=== PATIENT | female | born 1970 | race Caucasian/White ===

== ENCOUNTER 2017-11-01 08:05 | Emergency (ER) | payer OTHER ==
[~2017-11-01 08:05] MED LIST: ACET-1935 PO; ASPI-692 PO; BISA-229 PO; BUTA1CAP4 PO; CALCIUM; CARB-86 PO; CEP500 PO; CYCL10TA29 PO; DICL-195 PO; DICY20TA70 PO; DIPH-740 PO; DIPH-741 PO; EST1T TD; FIO PO; FISH OIL; GLUCOSAMINE; IBU600 PO; IBU800 PO; IBUP200C72 PO; KET10 PO; L-NO1TBD6 PO; LOR5 PO; LOR5/325 PO; MAGNESIUM; MECL-81 PO; MILN12.52 PO; MULTIVITAMIN; NAPR220T86 PO; NAPROSYN; NIACIN; ONDA4TAB PO; ORP100 PO; PER PO; SERT-1 PO; SERT-173; SILV20CR2 TP; SILV20CR20 TP; TOP25 PO; VITAMIN B6; [UNRECOGNIZED DRUG - CODE] PO; potassium otc
[2017-11-01 08:10] VITALS: BP 124/92
[2017-11-01] MEDS ORDERED: DIPHTH/TETANUS/ACEL. PERTUSSIS IM ONLY ONE (08:15)
--- NOTE | 2017-11-01 08:18 | ER Report ---
History and Physical Time Seen By MD: 08:15 Hx. 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 Cardiovascular: No chest pain, no palpitations. Gastrointestinal: No vomiting, no abdominal pain. Musculoskeletal: No back pain. Remainder of the 14 system rev: Yes Allergies: Coded Allergies: carrot (Verified Allergy, Mild, HANDS SWELL, 06/27/17) Home Meds No Active Prescriptions or Reported Meds Reviewed Nurses Notes: Yes Old Medical Records Reviewed: Yes Hx Smoking: No Smoking Status: Never Smoker Exposure to Second Hand Smoke?: No Hx Substance Use Disorder: No Hx Alcohol Use: No Constitutional Vital Sign - Last 24 Hours 11/01/17 08:10 Temp 97.8 Pulse 93 Resp 16 B/P (MAP) 124/92 Pulse Ox 96 O2 Delivery Room Air Physical Exam General appearance: Alert no distress. Respiratory: Chest is non tender, lungs are clear to auscultation. Cardiac: Regular rate and rhythm [ ] Right hand dorsal aspect 5th finger PIP joint shows a very small 0.3-0.5 cm angled laceration actively bleeding neurovascularly intact otherwise unremarkable DIFFERENTIAL DIAGNOSIS: After history and physical exam differential diagnosis was considered for laceration Medical Decision Making ED Course/Re-evaluation ED Course ED clinical course medical evaluation 46-year-old female who cut her 5th finger dominant right hand dorsal aspect PIP joint a single interrupted suture was placed Procedural note simple interrupted suture placed of 4-0 nylon sterile aseptic technique throughout patient had his wound cleaned and copiously irrigated Carroll stitch was placed with good cosmesis sterile dressing will be applied Patient be discharged for evaluation for suture removal in between 8-9 days will follow up with primary care and/or clinic for evaluation advised to keep the wound dry for the next 72 hours and follow-up with primary care as needed Decision to Disposition Date: Nov 01, 2017 Decision to Disposition Time: 08:27 Depart Departure Latest Vital Signs Vital Signs Date Time Temp Pulse Resp B/P (MAP) Pulse Ox O2 Delivery O2 Flow Rate FiO2 11/01/17 08:10 97.8 93 16 124/92 96 Room Air Impression: Primary Impression: Laceration Condition: Improved Disposition: HOME OR SELF-CARE Referrals: MEJIA IBRAHIM DO (PCP) 1 Week New Scripts No Active Prescriptions or Reported Meds Patient Instructions: Acute Wound Care (DC) BRENDA JONES MD Nov 01, 2017 08:18
== END 2017-11-01 08:37 | disposition home or self-care (01) ==
LOC: ER 08:17
DX: S61.216A Laceration without foreign body of right little finger without damage to nail, initial encounter (principal); W26.9XXA Contact with unspecified sharp object(s), initial encounter; Y93.G1 Activity, food preparation and clean up; Y99.0 Civilian activity done for income or pay
CPT/HCPCS: 90471; 90715; 99282

== ENCOUNTER → 2017-12-05 | Outpatient (CLI) | payer OTHER ==
--- NOTE | 2017-12-05 10:26 | EKG ---
[place] [facility] [place] NAME: GONZALO ROSA : [id number] MR: [id number] V: [id number] EXAM DATE: ORDERING PHYSICIAN: MEJIA IBRAHIM TECHNOLOGIST: KIKE Garcia Reason : TACHYCARDIA Blood Pressure : / mmHG Vent. Rate : 085 BPM Atrial Rate : 085 BPM P-R Int : 130 ms QRS Dur : 084 ms QT Int : 350 ms P-R-T Axes : 016 020 008 degrees QTc Int : 416 ms Normal sinus rhythm ST abnormality, possible digitalis effect Abnormal ECG When compared with ECG of 07-JUL-2015 14:42, Previous ECG has undetermined rhythm, needs review Confirmed by CLOTILDE RICHARD ([id number]) on 12/05/2017 12:07:55 PM Referred By: ALEXANDRIA Confirmed By:CLOTILDE RICHARD
--- NOTE | 2017-12-05 11:14 | RADIOLOGY IMAGING REPORT ---
[place] [facility] [place] Chloe Manrique : 1970 MR: [id number] V: [id number] EXAM DATE: ORDERING PHYSICIAN: MEJIA IBRAHIM TECHNOLOGIST: Location: [facility] - [place] Patient: Chloe Manrique : 1970 Visit/Account:[id number] Date of Sevice: 12/05/2017 Exam type: CHEST PA AND LAT History: Cough since this morning, chest pain when coughing Comparison: July 07, 2015. Findings: There is a small amount of linear stranding in the left lung base consistent with scarring versus ate lectasis. There is no evidence of focal infiltrates, pleural effusions or pulmonary edema. No evide nce of a pneumothorax or pneumomediastinum. The cardiac silhouette is normal in size. IMPRESSION: 1. Small amount linear stranding in the left lung base consistent with scarring versus atelectasis Report Dictated By: Kimberly Ruiz MD at 12/05/2017 11:08 AM Report E-Signed By: Kimberly Ruiz MD at 12/05/2017 11:09 AM WSN:[email or web address]
== END ==
LOC: RAD 10:06
PROVIDERS: ATTEND Family Medicine
DX: R91.8 Other nonspecific abnormal finding of lung field (principal); R94.31 Abnormal electrocardiogram [ECG] [EKG]
CPT/HCPCS: 36415; 71046; 82310; 82374; 82435; 82565; 82947; 84132; 84295; 84443; 84520; 93005

== ENCOUNTER → 2017-12-07 | Outpatient (CLI) | payer OTHER ==
--- NOTE | 2017-12-07 13:10 | RADIOLOGY IMAGING REPORT ---
[facility] PATIENT NAME: Chloe Manrique : 1970 MR: [id number] V: [id number] EXAM DATE: ORDERING PHYSICIAN: MEJIA IBRAHIM TECHNOLOGIST: Location: [facility] Patient: Chloe Manrique : 1970 Visit/Account:[id number] Date of Sevice: 12/07/2017 Exam type: CHEST PA AND LAT History: Cough Comparison: December 05, 2017. Findings: Linear stranding left lung base is again noted consistent with scarring versus atelectasis. There is no evidence of focal infiltrates pleural effusions or pulmonary edema. The cardiac silhouette is no rmal in size. IMPRESSION: 1. Small amount linear stranding left lung base persist consistent with scarring versus atelectasis. Report Dictated By: Kimberly Ruiz MD at 12/07/2017 1:05 PM Report E-Signed By: Kimberly Ruiz MD at 12/07/2017 1:07 PM WSN:[email or web address]
== END ==
LOC: RAD 12:00
PROVIDERS: ATTEND Family Medicine
DX: R91.8 Other nonspecific abnormal finding of lung field (principal)
CPT/HCPCS: 71046

== ENCOUNTER → 2017-12-11 | Outpatient (CLI) | payer OTHER ==
--- NOTE | 2017-12-13 13:23 | RT HOLTER TEST ---
[place] [facility] [place]: GONZALO ROSA : [id number] MR: [id number] V: [id number] EXAM DATE: ORDERING PHYSICIAN: MEJIA IBRAHIM TECHNOLOGIST: NADIR Hook-up date: 2017-12-11 12:21:00 Duration: 44:06:00 Test Indications: chest pain / tachy Medications: diary not returned [id number] QRS complexes 1 Ventricular ectopics which represent <1 % of total QRS comp. 11 Supraventricular ectopics which represent <1 % of total QRS comp. * Paced QRS complexes which represent % of total QRS comp. VENTRICULAR ECTOPY 1 Isolated 0 Bigeminal Cycles 0 Couplets 0 Runs 0 Beats in Runs * Beats LONGEST at * BPM at :: -- * Beats FASTEST at * BPM at :: -- SUPRAVENTRICULAR ECTOPY 9 Isolated 1 Couplets 0 Runs 0 Beats in Runs * Beats LONGEST at * BPM at :: -- * Beats FASTEST at * BPM at :: -- HEART RATES 56 MIN at 03:12:50 2017-12-12 81 AVG 137 MAX at 19:37:52 2017-12-12 LONGEST RR 1.112 secs at 03:12:32 2017-12-12 S-T LEVELS Channel 1 -2.600 mm MIN at 18:36:45 2017-12-12 0.800 mm MAX at 13:49:30 2017-12-11 Channel 2 -2.600 mm MIN at 14:26:45 2017-12-12 0.400 mm MAX at 15:24:15 2017-12-11 Channel 3 -2.400 mm MIN at 07:36:45 2017-12-13 1.000 mm MAX at 16:00:15 2017-12-11 There were no reported symptoms during the test. The patient was predominantly in a sinus rhythm wit h rare supraventricular ectopic beats and ventricular ectopic beats. Confirmed by LONA MORALES ([id number]) on 12/13/2017 1:22:22 PM Referred By: Overread By: LONA MORALES
== END ==
LOC: RESP 11:58
PROVIDERS: ATTEND Family Medicine
DX: R07.9 Chest pain, unspecified (principal); R06.02 Shortness of breath; R94.31 Abnormal electrocardiogram [ECG] [EKG]; R00.0 Tachycardia, unspecified
CPT/HCPCS: 93225; 93226

== ENCOUNTER → 2017-12-26 | Outpatient (CLI) | payer OTHER ==
[~2017-12-26] MED LIST changes: +SUMA50TA34 PO
--- NOTE | 2017-12-26 11:46 | RT STRESS TEST REPORT ---
FACILITY: [facility] - [place], [place] PATIENT NAME: GONZALO ROSA : [id number] MR: [id number] V: [id number] EXAM DATE: ORDERING PHYSICIAN: RISA JOHNSTON TECHNOLOGIST: Abhilash Acquisition Time: 2017-12-26 08:28:13 Total Exercise Time: 00:05:01 Test Indications: Syncope Medications: vitamins benzonatate ranitidine supplements Protocol: JUSTIN 2 Max HR: 153 BPM 89% of Pred: 171 BPM Max BP: 114/079 mmHG Max Work Load: 7.0 METS Baseling ECG with ST depression in inferior leads, no change suggesting ischemia at stress. No signif icant arrhythmias noted. Confirmed by SIMONE CLEVELAND ([id number]) on 12/26/2017 11:44:36 AM Referred By: Risa Johnston Overread By: SIMONE CLEVELAND
--- NOTE | 2017-12-26 15:31 | RADIOLOGY IMAGING REPORT ---
FACILITY: [facility] - [place] PATIENT NAME: GONZALO ROSA : [id number] MR: [id number] V: [id number] EXAM DATE: [id number] ORDERING PHYSICIAN: MEJIA IBRAHIM TECHNOLOGIST: Marzena Avilez PROCEDURE: STRESS ECHOCARDIOGRAPHY COMPARISON: None. INDICATIONS: CHEST PAIN/SOB/ABNORMAL ECG BASELINE ECG: Shows normal sinus rhythm with ST depression in the inferior leads. STRESS ECG: Inferior ST depressions normalize with stress, show no signs of ischemia throughout. No evidence of significant arrhythmia. EXERCISE PORTION: Patient exercised for 5 min on Carson protocol reaching a maximum of 7 mets. Her resting heartrate was 94 BPM & reached a maximum heartrate of 153 BPM which represented 89% of her age predicted max heartrate. Resting blood pressure was 99/78 & peaked at 114/79. ECHOCARDIOGRAM INTERPRETATION: Baseline ejection fraction was calculated at 55% with no regional wall motion abnormalities. There was moderate LVH without LVOT obstruction present. No significant valvular dysfunction other than trace MR & TR. STRESS ECHO: Normal augmentation of LV wall function with an ejection fraction estimated at 71% with stress, no evidence of wall motion abnormalities or ischemia noted. CONCLUSION: 1. Abnormal baseline ECG with inferior ST segment depression that does not worsen with stress. 2. Moderate LVH with normal ejection fraction on baseline echocardiogram with no significant valvular dysfunction. 3. Normal stress echocardiogram with normal augmentation with normal augmentation of LV function & no evidence of focal wall motion abnormalities with stress. 4. Fair exercise capacity. 5. Based on results of the above stress test patient remains low risk (<1%) for annual cardiovascular events. Dictated by: Denton Guardado M.D. on 12/26/2017 at 11:55 Transcribed by: JUSTICE on 12/26/2017 at 15:24 Approved by: Denton Guardado M.D. on 12/26/2017 at 15:30 [facility]
== END ==
LOC: RAD 02:13
PROVIDERS: ATTEND Family Medicine
DX: R07.9 Chest pain, unspecified (principal); R06.02 Shortness of breath; R94.31 Abnormal electrocardiogram [ECG] [EKG]
CPT/HCPCS: 93017; 93325; 93350

== ENCOUNTER 2018-01-03 01:29 | Outpatient (RCR) | payer OTHER ==
[~2018-01-03 01:29] MED LIST changes: -SUMA50TA34 PO
--- NOTE | 2018-01-04 08:31 | RADIOLOGY IMAGING REPORT ---
FACILITY: [facility] - [place], [place] PATIENT NAME: GONZALO ROSA : [id number] MR: [id number] V: [id number] EXAM DATE: ORDERING PHYSICIAN: MEJIA IBRAHIM TECHNOLOGIST: Shirin Miller PROCEDURE:BILATERAL DIGITAL SCREENING MAMMOGRAM WITH CAD ASSISTED INTERPRETATION & 3D TOMOSYNTHESIS COMPARISON:Prior mammograms 03/03/14. INDICATIONS:SCREENING FINDINGS: A small amount of fibroglandular tissue is seen throughout the breasts. The parenchymal pattern has remained stable allowing for difference in mammographic technique & patient positioning. There is no evidence of malignant appearing mass, malignant appearing calcifications or other secondary sign of malignancy in either breast. DIAGNOSTIC CATEGORY 1--NEGATIVE. RECOMMENDATIONS: ROUTINE MAMMOGRAM AND CLINICAL EVALUATION. IMPRESSION: BIRADS 1: Negative. No significant abnormality is seen. Dictated by: Kimberly Ruiz M.D. on 01/03/2018 at 15:48 Transcribed by: CHRISTI on 01/03/2018 at 15:56 Approved by: Kimberly Ruiz M.D. on 01/04/2018 at 8:30 [facility]
[2018-01-05] MEDS ORDERED: SUMA50TA34 PO (11:17)
== END 2018-01-05 18:00 | disposition home or self-care (01) ==
LOC: MAMO 01:29
PROVIDERS: ATTEND Family Medicine
DX: Z12.31 Encounter for screening mammogram for malignant neoplasm of breast (principal); R06.02 Shortness of breath; J98.4 Other disorders of lung
CPT/HCPCS: 77063; 77067; 94060; 94726; 94729

== ENCOUNTER 2018-01-05 08:26 | Emergency (ER) | payer OTHER ==
--- NOTE | 2018-01-05 08:38 | ER Report ---
History and Physical Time Seen By MD: 08:37 Hx. of Stated Complaint: headache started yesterday. worst ever. has tried benadryl, naproxin, tylenol HPI/ROS This is a 47-year-old female with a history of migraine headaches who presents to the emergency department with a migraine headache that is not controlled with [id number]-[id number] medications. It is not the worst headache of her life. Not sudden in onset. It is a right frontal headache, and no meningismus or fever chills. The headache started yesterday, and she was able to control it somewhat with Tylenol. Today she was at work and the headache continued, so her coworkers suggested that she come to the emergency department. There is no vision changes, and no focal neurologic deficits or complaints. No recent trauma. Remainder of the 14 system rev: Yes Allergies: Coded Allergies: carrot (Verified Allergy, Mild, HANDS SWELL, 01/05/18) Home Meds No Active Prescriptions or Reported Meds Reviewed Nurses Notes: Yes Old Medical Records Reviewed: Yes Hx Smoking: No Smoking Status: Never Smoker Exposure to Second Hand Smoke?: No Hx Substance Use Disorder: No Hx Alcohol Use: No Constitutional Vital Sign - Last 24 Hours 01/05/18 01/05/18 01/05/18 01/05/18 08:31 08:34 08:41 08:56 Temp 98.4 Pulse 75 86 76 Resp 16 B/P (MAP) 117/86 117/86 (96) Pulse Ox 94 93 94 O2 Delivery Room Air 01/05/18 01/05/18 01/05/18 01/05/18 09:00 09:11 09:26 09:30 Pulse 81 70 B/P (MAP) 99/91 (94) 111/50 (70) Pulse Ox 95 94 Intake and Output 01/05/18 01/05/18 01/06/18 14:59 22:59 06:59 Intake Total 1000 ml Balance 1000 ml Physical Exam General Appearance: The patient is alert, has no immediate need for airway protection and no signs of toxicity. Eyes: Pupils equal and round no pallor or injection, no nystagmus ENT, Mouth: Mucous membranes are moist. Respiratory: There are no retractions, lungs are clear to auscultation. Cardiovascular: Regular rate and rhythm. Gastrointestinal: Abdomen is soft and non tender, no masses, bowel sounds normal. Neurological: strength/sensation grossly in tact, normal gait Skin: Warm and dry, no rashes. Neck is supple non tender. No meningimus Extremities are nontender, nonswollen and have full range of motion. DIFFERENTIAL DIAGNOSIS: After history and physical exam differential diagnosis was considered for headache including but not limited to subarachnoid hemorrhage , migraine headache, tension headache and infectious causes such as meningitis, pharyngitis and sinusitis. Medical Decision Making ED Course/Re-evaluation ED Course Headache improved with IV fluids, Toradol, Reglan, and Decadron. The patient has a normal exam, no fever, and no meningismus. Is not the worst headache of her life. Do not think she needs imaging or a lumbar puncture. I do not think this is infectious or intracranial hemorrhage. I think this headache is consistent with her typical migraines. I counseled her to return to the emergency department if her symptoms worsen or if she develops a fever. In the meantime I counseled her to rest the remainder of the day and drink plenty of fluids. Decision to Disposition Date: Jan 05, 2018 Decision to Disposition Time: 11:14 Depart Departure Latest Vital Signs Vital Signs Date Time Temp Pulse Resp B/P (MAP) Pulse Ox O2 Delivery O2 Flow Rate FiO2 01/05/18 09:30 111/50 (70) 01/05/18 09:26 70 94 01/05/18 08:31 98.4 16 Room Air Impression: Primary Impression: Migraine headache Condition: Improved Disposition: HOME OR SELF-CARE Referrals: MEJIA IBRAHIM DO (PCP) New Scripts Sumatriptan Succinate (IMITREX) 50 Mg Tablet 50 MG PO ONCE, #10 Prov: GAYLA CHEEK MD 01/05/18 Patient Instructions: Migraine Headache (ED) Problem Qualifiers Primary Impression: Migraine headache Migraine type: unspecified Status migrainosus presence: without status migrainosus Intractability: not intractable Qualified Codes: G43.909 - Migraine, unspecified, not intractable, without status migrainosus GAYLA CHEEK MD Jan 05, 2018 08:37
[2018-01-05] MEDS ORDERED: SUMAtriptan SUCC 25MG TAB PO ONE (09:25)
[2018-01-05 09:30] VITALS: BP 111/50
[2018-01-05] MEDS ORDERED: DEXAMETHASONE SOD PHOS 10MG/ML IVP ONE (10:00)
[2018-01-05] MEDS ORDERED: METOCLOPRAMIDE 10 MG/2 ML SDV IVP ONE (10:00)
[2018-01-05] MEDS ORDERED: KETOROLAC 30 MG/ML VIAL IVP ONE (10:00)
[2018-01-05] MEDS ORDERED: NS(*) 0.9% 1000 ML BAG 1,000 ML IV ONE (10:00)
[2018-01-05] MEDS ORDERED: SUMA50TA34 PO (11:17)
== END 2018-01-05 11:23 | disposition home or self-care (01) ==
LOC: ER 08:29
DX: G43.909 Migraine, unspecified, not intractable, without status migrainosus (principal)
CPT/HCPCS: 96374; 96375; 99284; J1100; J1885; J2765; J7030

== ENCOUNTER 2018-04-05 15:32 | Emergency (ER) | payer OTHER ==
[~2018-04-05 15:32] MED LIST changes: +SUMA50TA34 PO
[2018-04-05 15:40] VITALS: BP 117/84
--- NOTE | 2018-04-05 15:43 | ER Report ---
History and Physical Time Seen By MD: 15:43 HPI/ROS CHIEF COMPLAINT: Headache, head injury HISTORY OF PRESENT ILLNESS: 47-year-old female patient presents to emergency room with complaint of headache and head injury. Patient states that she was at work today and hit the back of her head on a door. She states that she did not l ose consciousness. She states that she does have a bump to the left side of the back of her head. She states she's felt dizzy, lightheaded, nauseated. She has not had any vomiting. Patient states she is not taking any medication for this. She denies having any fevers, chills. REVIEW OF SYSTEMS: Respiratory: No cough, no dyspnea. Cardiovascular: No chest pain, no palpitations. Gastrointestinal: No vomiting, no abdominal pain. Musculoskeletal: No back pain. Allergies: Coded Allergies: carrot (Verified Allergy, Mild, HANDS SWELL, 01/05/18) Home Meds Active Scripts Ketorolac Tromethamine (KETOROLAC TROMETHAMINE) 10 Mg Tab, 10 MG PO Q6H, #20 TAB Prov:EL WAGONER 04/05/18 Sumatriptan Succinate (IMITREX) 50 Mg Tablet, 50 MG PO ONCE, #10 Prov:GAYLA CHEEK MD 01/05/18 Past Medical/Surgical History Patient has a past medical history of migraines, IBS, ovarian cyst, arthritis, back pain, rectal bleeding, alicea, depression. Patient has a surgical history of elbow surgery, wrist surgery, knee surgery, hysterectomy, ovarian cystectomy, cholecystectomy. Patient has a family medical history of cancer, diabetes. Reviewed Nurses Notes: Yes Hx Smoking: No Smoking Status: Never Smoker Exposure to Second Hand Smoke?: No Hx Substance Use Disorder: No Hx Alcohol Use: No Constitutional Vital Sign - Last 24 Hours 04/05/18 15:40 Temp 98.7 Pulse 93 Resp 17 B/P (MAP) 117/84 Pulse Ox 98 O2 Delivery Room Air Physical Exam General Appearance: The patient is alert, has no immediate need for airway protection and no current signs of toxicity. Eyes: Pupils equal and round no injection. Extra ocular movements intact. Respiratory: Chest is non tender, lungs are clear to auscultation. Cardiac: regular rate and rhythm Gastrointestinal: Abdomen is soft and non tender, no masses, bowel sounds normal. Musculoskeletal: Neck: Neck is supple and non tender. Extremities have full range of motion and are non tender. Skin: No rashes or lesions. Neuro: Patient is alert and oriented 4, cranial nerves II through XII grossly intact. Patient was able to do 3 word recall 3/3 at zero minutes and 3/3 at 5 minutes. Patient was unable to complete serial sevens. DIFFERENTIAL DIAGNOSIS: After history and physical exam differential diagnosis was considered for head injury including but not limited to concussion, skull fracture, intraparenchymal contusion, subarachnoid, subdural and epidural hematoma. Medical Decision Making EKG/Imaging Imaging EXAMINATION: CT head without IV contrast HISTORY: Hit head, headache. COMPARISON: CT head from 12/08/2016. TECHNIQUE: Contiguous axial images were obtained from the skull base to the vertex without intravenous contrast. Sagittal and coronal reformatted images are also submitted. One of the following dose optimization techniques was utilized in the performance of this exam: Automated exposure control; adjustment of the mA and/or kV according to the patient's size; or use of an iterative reconstruction technique. Specific details can be referenced in the facility's radiology CT exam operational policy. FINDINGS: Brain volume: Normal. Ventricles: Normal. Acute ischemic changes: None. Hemorrhage: No acute intracranial hemorrhage. Masses/edema: None. Fuentes-white: Negative. White matter: Normal. Vessels: Negative. Extra-axial: Negative. Calvarium/scalp: No acute fracture. Skull base/visualized face: Negative. Visualized sinuses/orbits: Negative. IMPRESSION: No acute fracture, hemorrhage or intracranial mass lesion. No CT evidence of acute infarct. Report Dictated By: Daria Strauss MD at 04/05/2018 4:11 PM Report E-Signed By: Daria Strauss MD at 04/05/2018 4:15 PM ED Course/Re-evaluation ED Course Patient was admitted to an exam room, history and physical were obtained. Differential diagnoses were considered. On examination lungs are clear, heart is regular, abdomen soft nontender. Neuro exam was intact. Patient did struggle serial sevens. A CT scan of the head was done which was negative. I believe the patient has a concussion. We'll go ahead and have her go on to concussion prec autions. Patient should be monitored by somebody this evening. She is able to sleep, and I will make sure that she is waking up without any difficulties. She is follow-up with primary care provider next week. Patient states she can stay with her son or her son will stay with her. Patient will be discharged at this time. We will give her a limited supply of Toradol. Decision to Disposition Date: Apr 05, 2018 Decision to Disposition Time: 16:40 Depart Departure Latest Vital Signs Vital Signs Date Time Temp Pulse Resp B/P (MAP) Pulse Ox O2 Delivery O2 Flow Rate FiO2 04/05/18 15:40 98.7 93 17 117/84 98 Room Air Impression: Primary Impression: Concussion Condition: Improved Disposition: HOME OR SELF-CARE Referrals: MEJIA IBRAHIM DO (PCP) New Scripts Ketorolac Tromethamine (KETOROLAC TROMETHAMINE) 10 Mg Tab 10 MG PO Q6H, #20 TAB Prov: EL WAGONER 04/05/18 Patient Instructions: Concussion (ED) Additional Instructions: Get plenty of rest. Limit activity by pain. Limit TV and computer time. Monitor for confusion, increased irritability, uncontrollable vomiting, worsening headache or difficulty to arouse. Return to the ER if those are to occur. Follow up with your primary care provider in the next week. Problem Qualifiers Primary Impression: Concussion Encounter type: initial encounter Loss of consciousness presence/duration: without LOC Qualified Codes: S06.0X0A - Concussion without loss of consciousness, initial encounter EL WAGONER Apr 05, 2018 15:43
--- NOTE | 2018-04-05 16:18 | RADIOLOGY IMAGING REPORT ---
FACILITY: [facility] - [place], [place] PATIENT NAME: Chloe Manrique : 1970 MR: [id number] V: [id number] EXAM DATE: ORDERING PHYSICIAN: EL WAGONER TECHNOLOGIST: Location: [facility] - [place] Patient: Chloe Manrique : 1970 Visit/Account:[id number] Date of Sevice: 04/05/2018 EXAMINATION: CT head without IV contrast HISTORY: Hit head, headache. COMPARISON: CT head from 12/08/2016. TECHNIQUE: Contiguous axial images were obtained from the skull base to the vertex without intraven ous contrast. Sagittal and coronal reformatted images are also submitted. One of the following dose optimization techniques was utilized in the performance of this exam: Autom ated exposure control; adjustment of the mA and/or kV according to the patient's size; or use of an i terative reconstruction technique. Specific details can be referenced in the facility's radiology C T exam operational policy. FINDINGS: Brain volume: Normal. Ventricles: Normal. Acute ischemic changes: None. Hemorrhage: No acute intracranial hemorrhage. Masses/edema: None. Fuentes-white: Negative. White matter: Normal. Vessels: Negative. Extra-axial: Negative. Calvarium/scalp: No acute fracture. Skull base/visualized face: Negative. Visualized sinuses/orbits: Negative. IMPRESSION: No acute fracture, hemorrhage or intracranial mass lesion. No CT evidence of acute infarct. Report Dictated By: Daria Strauss MD at 04/05/2018 4:11 PM Report E-Signed By: Daria Strauss MD at 04/05/2018 4:15 PM WSN:[id number]
[2018-04-05] MEDS ORDERED: KET10 PO (16:39)
== END 2018-04-05 16:55 | disposition home or self-care (01) ==
LOC: ER 15:42
DX: S06.0X0A Concussion without loss of consciousness, initial encounter (principal)
CPT/HCPCS: 70450; 99284